=== PATIENT | female | born 1980 | race Caucasian/White ===

== ENCOUNTER 2018-06-04 18:38 | Inpatient (IN) | payer BC ==
[2018-06-04 21:21] LABS: ADD MAN DIFF? NO
[2018-06-04 21:23] LABS: WHITE BLOOD COUNT 6.5 10^3/ul (4.8-10.8)
[2018-06-04 21:23] LABS: BASOPHILS % 0.3 % (0.0-2.0); EOSINOPHILS # 0.1 10^3/ul (0.0-0.5); EOSINOPHILS % 1.7 % (0.0-7.0); HEMOGLOBIN 13.1 g/dl (12.0-16.0); LYMPHOCYTES # 2.3 10^3/ul (0.8-2.9); LYMPHOCYTES % 36.1 % (15.0-51.0); MEAN CORPUSCULAR HEMOGLOBIN 29.1 pg (29.0-33.0); MEAN CORPUSCULAR HGB CONC 33.6 g/dl (32.0-37.0); MEAN CORPUSCULAR VOLUME 86.7 fl (82.0-101.0); MEAN PLATELET VOLUME 11.6 fl (7.4-10.4); MONOCYTE # 0.6 10^3/ul (0.3-0.9); MONOCYTES % 8.7 % (0.0-11.0); NEUTROPHIL # 3.4 10^3/ul (1.6-7.5); PLATELET COUNT 172 10^3/UL (140-415); RED CELL DISTRIBUTION WIDTH 12.8 % (11.5-14.5)
[2018-06-04 21:48] LABS: ADD UMIC YES; UR ASCORBIC ACID NEGATIVE (NEGATIVE); UR BACTERIA FEW /HPF (NONE SEEN); UR BILIRUBIN (Dip) NEGATIVE (NEGATIVE); UR BLOOD (Dip) 1+ mg/dL (NEGATIVE); UR CLARITY CLEAR (CLEAR); UR COLOR STRAW (YELLOW); UR GLUCOSE (Dip) NEGATIVE (NEGATIVE); UR KETONES (Dip) NEGATIVE (NEGATIVE); UR LEUKOCYTE ESTERASE (Dip) 2+ Leu/ul (NEGATIVE); UR NITRITE (Dip) NEGATIVE (NEGATIVE); UR RBC 0 /HPF (0-5); UR SPECIFIC GRAVITY (Dip) 1.015 (1.003-1.030); UR SQUAMOUS EPITHELIAL CELL FEW /HPF (FEW); UR TOTAL PROTEIN (Dip) NEGATIVE (NEGATIVE); UR UROBILINOGEN (Dip) NEGATIVE (NEGATIVE); UR WBC 4 /HPF (0-5)
[2018-06-04 21:50] LABS: INR 0.89; PROTIME 12.1 Sec (11.9-14.9); PT RATIO 0.9
[2018-06-04 21:51] LABS: PARTIAL THROMBOPLASTIN TIME 28.3 Sec (23.0-35.0)
[2018-06-05] MEDS: SOD CHLORIDE 0.45% 1,000 ML IV (05:52)
[2018-06-05] MEDS ORDERED: PROCHLORPERAZINE 10 MG INJ IV (10:00)
[2018-06-05] MEDS ORDERED: FENTAnyl 50 MCG/ML VIAL IV ×3 (10:00)
[2018-06-05] MEDS ORDERED: HYDROmorphONE 1 MG/5 ML IV SYRINGE IV ×2 (10:00)
[2018-06-05] MEDS ORDERED: DIPHENHYDRAMINE 50 MG INJ IV (10:00)
[2018-06-05] MEDS ORDERED: ONDANSETRON 4 MG INJ IV (10:00)
[2018-06-05] MEDS ORDERED: MEPERIDINE 25 MG INJ IV (10:00)
[2018-06-05] MEDS ORDERED: MIDAZOLAM 1 MG/ML 2 ML INJ (10:09)
[2018-06-05] MEDS ORDERED: FENTAnyl 50 MCG/ML VIAL (10:13)
[2018-06-05] MEDS ORDERED: PHENYLephrine (100 MCG/ML) 5ML SYG (10:21)
[2018-06-05] MEDS ORDERED: DEXAMETHASONE 4 MG/ML 1 ML INJ (10:27)
[2018-06-05] MEDS ORDERED: LIDOCAINE 100 MG SYRINGE (10:27)
[2018-06-05] MEDS ORDERED: PROPOFOL 20 ML (10:27)
[2018-06-05] MEDS ORDERED: ROCURONIUM 50 MG INJ (10:27)
[2018-06-05] MEDS ORDERED: SUCCINYLCHOLINE CHLORIDE 100 MG/5 ML SYG IV (10:27)
[2018-06-05] MEDS ORDERED: CLINDAMYCIN 900 MG/D5W (PMX) 50 ML IVPB (10:27)
[2018-06-05] MEDS ORDERED: FAMOTIDINE 20 MG INJ (10:27)
[2018-06-05] MEDS ORDERED: ONDANSETRON 4 MG INJ (10:27)
[2018-06-05] MEDS ORDERED: NEOSTIGMINE 3 MG/3 ML SYRINGE (11:01)
[2018-06-05] MEDS ORDERED: GLYCOPYRROLATE 0.4 MG INJ (11:01)
[2018-06-05] MEDS ORDERED: KETOROLAC 30 MG INJ (11:03)
[2018-06-05] MEDS: HYDROmorphONE 1 MG/5 ML IV SYRINGE IV (11:24)
[2018-06-05] MEDS: EPHEDrine SULFATE 50 MG/5 ML SYG IV ×3 (11:55→12:23)
[2018-06-05] MEDS ORDERED: ALBUMIN HUMAN 5% 250 ML IV (12:00)
[2018-06-05] MEDS: OXYCODONE/ACETAMINOPHEN (5/325) TAB PO (12:13)
[2018-06-05] MEDS ORDERED: OXYCODONE/ACETAMINOPHEN (5/325) TAB PO (13:00)
[2018-06-05] MEDS: SENNA/DOCUSATE NA (8.6MG/50MG) TAB PO ×2 (13:00→20:22)
[2018-06-05] MEDS: IBUPROFEN 600 MG TAB PO ×3 (13:00→23:52)
[2018-06-06] MEDS: IBUPROFEN 600 MG TAB PO ×4 (05:47→23:46)
[2018-06-06] MEDS: SENNA/DOCUSATE NA (8.6MG/50MG) TAB PO ×2 (08:13→20:17)
[2018-06-06] MEDS: LIDOCAINE 2% VISC 15 ML CUP PO (14:42)
[2018-06-07] MEDS: IBUPROFEN 600 MG TAB PO (05:51)
== END 2018-06-07 08:25 | disposition home or self-care (01) | DRG 819 ==
LOC: FTE 18:38 → PP2 06-05 00:54
PROC: 0UB54ZZ Excision of Right Fallopian Tube, Percutaneous Endoscopic Approach (ICD-10-PCS; principal; 2018-06-05 09:30)
PROC: 10T24ZZ Resection of Products of Conception, Ectopic, Percutaneous Endoscopic Approach (ICD-10-PCS; 2018-06-05 09:30)
PROC: 10D27ZZ Extraction of Products of Conception, Ectopic, Via Natural or Artificial Opening (ICD-10-PCS; 2018-06-05 09:30)
DX: O00.101 Right tubal pregnancy without intrauterine pregnancy (principal); F17.210 Nicotine dependence, cigarettes, uncomplicated; Z88.0 Allergy status to penicillin
CPT/HCPCS: 76801; 76817; 81001; 84702; 85025; 85610; 85730; 86850; 86900; 86901; 88305

== ENCOUNTER 2018-06-20 23:08 | Emergency (ER) | payer BC ==
[2018-06-20 23:59] LABS: ADD MAN DIFF? NO
[2018-06-21 00:01] LABS: WHITE BLOOD COUNT 6.2 10^3/ul (4.8-10.8)
[2018-06-21 00:01] LABS: BASOPHILS % 0.2 % (0.0-2.0); EOSINOPHILS # 0.1 10^3/ul (0.0-0.5); EOSINOPHILS % 1.6 % (0.0-7.0); HEMATOCRIT 39.3 % (37.0-47.0); HEMOGLOBIN 13.2 g/dl (12.0-16.0); LYMPHOCYTES # 2.5 10^3/ul (0.8-2.9); LYMPHOCYTES % 39.7 % (15.0-51.0); MEAN CORPUSCULAR HEMOGLOBIN 29.1 pg (29.0-33.0); MEAN CORPUSCULAR HGB CONC 33.6 g/dl (32.0-37.0); MEAN CORPUSCULAR VOLUME 86.6 fl (82.0-101.0); MONOCYTE # 0.5 10^3/ul (0.3-0.9); MONOCYTES % 8.2 % (0.0-11.0); NEUTROPHIL # 3.1 10^3/ul (1.6-7.5); PLATELET COUNT 208 10^3/UL (140-415); RED BLOOD COUNT 4.54 10^6/ul (4.20-5.40); RED CELL DISTRIBUTION WIDTH 12.3 % (11.5-14.5)
[2018-06-21 00:21] LABS: ANION GAP 9 (5-13); BLOOD UREA NITROGEN 15 mg/dl (7-20); CALCIUM 9.2 mg/dl (8.4-10.2); CARBON DIOXIDE 30 mmol/L (21-31); CHLORIDE 101 mmol/L (97-110); CREATININE 0.52 mg/dl (0.44-1.00); Estimated GFR > 60 mL/min (>60); GLUCOSE 108 mg/dl (70-220); POTASSIUM 3.4 mmol/L (3.5-5.1); SODIUM 140 mmol/L (135-144)
== END 2018-06-21 01:53 | disposition home or self-care (01) ==
LOC: E/R 23:08
DX: O72.2 Delayed and secondary postpartum hemorrhage (principal); R10.2 Pelvic and perineal pain
CPT/HCPCS: 36415; 76830; 76856; 80048; 84702; 85025; 99284-25